=== PATIENT | male | born 1990 | race Caucasian/White ===

== ENCOUNTER 2024-03-22 16:44 | Emergency (ER) | payer OTHER ==
[2024-03-22 17:01] VITALS: BP 131/95; PULSE 72; RESP 20; TEMP 97.6; BMI 37.5
== END 2024-03-22 18:07 | disposition home or self-care (01) ==
LOC: JER 16:44
DX: S00.11XA Contusion of right eyelid and periocular area, initial encounter (principal); Y04.8XXA Assault by other bodily force, initial encounter
CPT/HCPCS: 99282-25